=== PATIENT | female | born 1955 | race Caucasian/White ===

== ENCOUNTER → 2023-10-20 13:34 | Outpatient (REF) | payer MEDICARE, BC, SELFPAY | LOC: HWRAD 13:34 | PROVIDERS: ATTENDING PHYSICIAN Physician Assistant Medical | DX: Z12.31 Encounter for screening mammogram for malignant neoplasm of breast (principal); Z78.0 Asymptomatic menopausal state | CPT/HCPCS: 77063; 77067; 77080 ==

== ENCOUNTER 2024-01-30 11:15 | Emergency (ER) | payer MEDICARE, BC, SELFPAY ==
[2024-01-30] VITALS (10 sets, daily range): BP systolic 141–165; BP diastolic 65–91; BMI 29.6
[2024-01-30 12:25] LABS: % Basophils 1.4 % (0-2); % Eosinophils 2.4 % (0-6); % Immature Granulocytes 0.4 % (0-0.5); % Monocytes 5.8 % (1.7-9.3); Absolute Basophils 0.1 10^3/uL (0-0.2); Absolute Eosinophils 0.1 10^3/uL (0-0.7); Absolute Lymphocytes 1.1 10^3/uL (1.2-3.4); Absolute Monocytes 0.3 10^3/uL (0.1-0.6); Absolute Neutrophils 3.3 10^3/uL (1.4-6.5); Hemoglobin 7.7 g/dL (12.0-16.0); Mean Corp Hgb Conc. 29.6 g/dL (33.0-37.0); Mean Corpuscular Hgb 21.7 pg (27.0-31.0); Mean Corpuscular Volume 73.2 fL (81.0-99.0); Nucleated Red Blood Cells % 0 %; Platelet Count 536 10^3/uL (130-400); Red Blood Cell Count 3.55 10^6/uL (4.20-5.40); Red Cell Dist. Width 14.3 % (11.5-14.5)
[2024-01-30 12:44] LABS: ALT (SGPT) 14 U/L (0-35); AST (SGOT) 22 U/L (14-36); Albumin 4.5 g/dl (3.5-5.0); Alkaline Phosphatase 67 U/L (38-126); Blood Urea Nitrogen 13 mg/dl (7-17); Calcium 9.7 mg/dl (8.4-10.2); Carbon Dioxide 26 mmol/L (22-30); Chloride 107 mmol/L (98-107); Glucose 111 mg/dl (70-99); Potassium 4.4 mmol/L (3.5-5.1); Sodium 142 mmol/L (135-145); Total Bilirubin 0.2 mg/dl (0.2-1.3); Total Protein 7.1 g/dl (6.3-8.2); eGFR > 60.00
--- NOTE | 2024-01-30 14:32 | ED.GENMED ---
History of Present Illness
General
Chief Complaint: Dizziness
Time Seen by Provider: 01/30/24 13:43
History of Present Illness
History of Present Illness:
68-year-old female presents to the emergency department for evaluation of multiple symptoms. She initially is primarily concern for positional dizziness/vertigo that occurred on 2 brief occasions today however also notes that she has felt
exertional fatigue and shortness of breath ongoing for the past several weeks. In regards to the dizziness she currently has no symptoms and was able to walk to the emergency department without difficulty. The symptoms lasted less than 2 minutes
and there was no vomiting or vision changes with these episodes. No chest pain, nausea, or vomiting. In regards to the exertional shortness of breath this has been ongoing for several weeks, denies any melanotic stool. No exertional chest pain.
Review of Systems
Review of Systems
Allergies reviewed?: Yes
All Other Systems: ROS reviewed and negative except as documented in HPI and ROS
Phy Exam
Physical Exam
Physical Exam:
GEN: Well appearing, NAD, WDWN
Eyes: PERRLA, EOMs intact, no scleral icterus
HENT: NCAT, oral mucosa moist, no JVD, no cervical adenopathy.
Lungs: CTAB, no wheezes, rales, rhonchi, normal chest wall excursion
Cardiac: RRR, no M/R/G, no peripheral edema. Radial pulses 2+ bilat
Rectal: Firm stool in the rectal vault, brown, weakly heme positive
Abdomen: S, NT, ND, NABS, no masses or hepatosplenomegaly
Neuro: AO x 3, no focal deficits to BUE/BLE, normal sensation throughout
MSK: No gross deformity or ecchymosis. No edema. No digital clubbing
Skin: No rashes, petechiae. Normal color, no pallor or jaundice.
Psych: Calm, cooperative, proper hygiene
Course
Orders/Labs/Results
Orders:
Orders
01/30/24 11:17
Electrocardiogram (*1) Urgent
Reason for Study: Chest Pain
EKG- Treatment ONCE
01/30/24 12:05
Vital Signs As Directed
Frequency: Other
Weight As Directed
Frequency: Once
Comment: ZERO STRETCHER SCALE FOR ACCURATE WEIGHT
01/30/24 12:16
Complete Blood Count/With Diff Urgent
Comprehensive Metabolic Panel Urgent
01/30/24 14:30
Blood Bank Products [* Blood Bank Products] Urgent
Blood Bank Products: *Packed RBC Leuko(PRBC's)
Quantity: 1
Transfuse Today: Yes
Reason: Anemia
Pantoprazole [Protonix IV] 40 mg IV NOW STA
01/30/24 14:44
Type+Screen Urgent
01/30/24 15:14
ABO2 Urgent
BBK Wristband Number:
Associate notified that ABO2 has been ordered: [id number]
Date: 01/30/24
Time: 14:54
Asphalt Raker ID: [id number]
Abnormal Lab Results
01/30/24 01/30/24
12:16 14:44
RBC 3.55 L 10^6/uL
(4.20-5.40)
Hgb 7.7 L g/dL
(12.0-16.0)
Hct 26.0 L %
(37.0-47.0)
MCV 73.2 L fL
(81.0-99.0)
MCH 21.7 L pg
(27.0-31.0)
MCHC 29.6 L g/dL
(33.0-37.0)
Plt Count 536 H 10^3/uL
(130-400)
Absolute Lymphs (auto) 1.1 L 10^3/uL
(1.2-3.4)
Glucose 111 H mg/dl
(70-99)
Crossmatch IS Only See Detail
01/30/24 12:16
01/30/24 12:16
Vital Signs
Initial and Last Documented VS:
Initial Vital Signs
Temp Pulse Resp BP Pulse Ox
96.9 F L 86 18 158/89 100
01/30/24 11:56 01/30/24 11:56 01/30/24 11:56 01/30/24 11:56 01/30/24 11:56
Last Documented Vital Signs
Temp Pulse Resp BP Pulse Ox
99.1 F 75 16 144/76 97
01/30/24 19:20 01/30/24 19:20 01/30/24 19:20 01/30/24 19:20 01/30/24 19:20
MDM/Problems Addressed
MDM/Problems Addressed:
Regards the patient's dizziness this is likely benign positional vertigo and she has no provokable symptoms in the emergency department. Low clinical suspicion for central nervous system process, no indication for CT of the head. In regards to the
exertional shortness of breath this is likely on the basis of her severe anemia, last labs I was able to review with the patient showed a hemoglobin of 13.7 approximately 9 months prior. She does have weakly heme positive stool and reports symptoms
of GERD that would suggest peptic ulcer disease as a potential cause of malabsorption coupled with slow blood loss. As she is not anticoagulated and appears quite stable she was given 1 unit of packed red blood cells due to severe anemia and will
be discharged on high-dose PPI as well as Carafate. I discussed the case with her primary care physician to arrange for close outpatient follow-up as well as gastroenterology for potential outpatient EGD
Comment
Comment:
EKG independently interpreted by me shows normal sinus rhythm at a rate of [address] changes concerning for ischemia
*Critical Care Note
Total Time (30-74mins, 75-104mins- exclusive of procedures): 40 minutes
comment:
Critical care time: 40 minutes
Critical care time was exclusive of: Separately billable procedures, treating other patients, and teaching time
Critical care was necessary to treat or prevent imminent or life-threatening deterioration of the following conditions: Blood loss anemia
Critical care time spent personally by me on the following activities:
[x] Review of old charts
[x] Obtaining history from patient or surrogate
[x] Ordering and review of the laboratory studies
[ ] Ordering and review of radiographic studies
[x] Ordering and performing treatments and interventions
[x] Patient patient's response to treatment
[x] Development of treatment plan with patient or surrogate
ED Attending Note
-
Portions of this chart may have been created with voice recognition software.� Occasional wrong word or��sound alike� substitutions may have occurred due to the inherent limitations of voice recognition software.
Discharge Plan
Departure
Patient Disposition: Home (Routine Discharge)
Date of Disposition: 01/30/24
Time of Disposition: 18:39
Patient with high blood pressure during this ER visit?: Yes
Discharge Problem:
Peptic ulcer disease, Symptomatic anemia
Instructions: Peptic ulcers, Vertigo (a Type of Dizziness) (DC)
Prescriptions:
New
pantoprazole 40 mg tablet,delayed release (DR/EC)
40 mg PO BID 14 Days Qty: 28 0RF
sucralfate [Carafate] 1 gram tablet
1 g PO ACHS Qty: 90 0RF
Referrals:
Olegario Ac MD [Active] -
Johanna Woodward PA [Family Provider] -
Activity Restrictions/Additional Instructions:
Follow up with gastroenterology as soon as possible
Please see your primary doctor next week to discuss repeat hemoglobin testing
Avoid using any NSAID medications (ibuprofen, aspirin, naproxen)
Interventions
Interventions:
*Risk Screen - Suicide Last Done: 01/30/24 11:56
*General Assessment Last Done: 01/30/24 11:56
*Neglect/Abuse Screening Last Done: 01/30/24 11:56
ED- Fall Risk Assessment Last Done: 01/30/24 13:43
*ED COVID-19 Vaccine History Last Done: 01/30/24 11:56
*Nursing Disposition Last Done: 01/30/24 19:29
ED- Neurological Assessment Last Done: 01/30/24 12:03
ED- Cardiac Assessment Last Done: 01/30/24 13:43
ED Swallowing Screen Last Done: 01/30/24 13:43
Discharge Date and Time
Discharge Date/Time: 01/30/24 19:30
Print Language: [id number]
[2024-01-30] MEDS: PROTONIX IV 40 MG IV (15:14)
== END 2024-01-30 19:30 | disposition home or self-care (01) ==
LOC: EMR 11:15
PROVIDERS: EMERGENCY PHYSICIAN Emergency Medicine; FAMILY PHYSICIAN Physician Assistant Medical
DX: K27.9 Peptic ulcer, site unspecified, unspecified as acute or chronic, without hemorrhage or perforation (principal); D50.0 Iron deficiency anemia secondary to blood loss (chronic)
CPT/HCPCS: 36430; 96374; 99291; 80053; 85025; 86850; 86900; 86901; 86920; 93005; P9016

== ENCOUNTER → 2024-02-16 06:37 | Day surgery (SDC) | payer MEDICARE, BC, SELFPAY | LOC: GI 06:37 | PROVIDERS: ATTENDING PHYSICIAN Internal Medicine Gastroenterology | DX: D50.9 Iron deficiency anemia, unspecified (principal); K64.8 Other hemorrhoids; D12.5 Benign neoplasm of sigmoid colon; K44.9 Diaphragmatic hernia without obstruction or gangrene; K29.50 Unspecified chronic gastritis without bleeding | CPT/HCPCS: 45385; 43239; 88305; 88342 ==

== ENCOUNTER → 2025-01-13 08:54 | Outpatient (REF) | payer MEDICARE, BC, SELFPAY | LOC: HWWDC 08:54 | PROVIDERS: ATTENDING PHYSICIAN Physician Assistant Medical | DX: Z12.31 Encounter for screening mammogram for malignant neoplasm of breast (principal) | CPT/HCPCS: 77063; 77067 ==

== ENCOUNTER → 2025-02-02 09:11 | Outpatient (REF) | payer MEDICARE, BC, SELFPAY | LOC: WDC 09:11 | PROVIDERS: ATTENDING PHYSICIAN Physician Assistant Medical | DX: R92.8 Other abnormal and inconclusive findings on diagnostic imaging of breast (principal) | CPT/HCPCS: 77065 ==